=== PATIENT | male | born 1965 | race American Indian/Alaskan Native ===

== ENCOUNTER 2016-12-18 19:22 | Emergency (ER) | payer BC ==
--- NOTE | 2016-12-18 22:10 | XRay Report ---
FINAL REPORT PROCEDURE: XR FINGER(S) 2+V LT TECHNIQUE: LEFT 2nd finger radiographs, including AP, lateral, and oblique views. HISTORY: pain left index r/o fracture vs. foreign body COMPARISON: No prior studies are available for comparison. FINDINGS: Fracture (s) and/or Dislocation(s): None . Alignment: Normal. Joint space(s): Normal . Soft tissues: Normal . Bone mineralization: Normal . Foreign bodies: None . IMPRESSION: Normal Examination
[2016-12-18] MEDS ORDERED: BOOSTRIX IM ONE (22:18)
--- NOTE | 2016-12-18 22:29 | Emergency Department Report ---
ED Upper Extremity Inj HPI - General Chief Complaint: Extremity Injury, Upper Stated Complaint: SPLINTER LEFT FINGER Time Seen by Provider: 12/18/16 21:27 Source: patient Mode of arrival: Ambulatory Limitations: No Limitations - History of Present Illness Initial Comments: This is a 51-year-old male nontoxic, well nourished in appearance, no acute signs of distress presents to the ED complaining of left index finger. Patient was cutting wood and believe a piece of wood penetrated his left index finger and thinks he has a [place] in his left index finger. Patient stated this occurred today around 12:30 PM. Patient denies any numbness, tingling, pus, drainage, swelling, decreased range of motion, fever, chills, nausea, vomiting chest pain or shortness of breath. Patient denies any allergies or past medical history. Patient states he last received tetanus over 10 years ago. MD Complaint: Injury to:: left, finger -: Gradual, This afternoon Other Extremity Injury: Fingers: Left Other Injuries: none Place: work Severity scale (0 -10): 5 Improves With: none Worsens With: none Associated Symptoms: denies other symptoms. denies: weakness, numbness, neck pain, suspects foreign body, nausea/vomiting, heard/felt popping sensat - Related Data Previous Rx's Medication Instructions Recorded Last Taken Type Ibuprofen [Motrin 600 MG tab] 600 mg PO Q8H PRN #30 tablet 12/18/16 Unknown Rx Allergies Allergy/AdvReac Type Severity Reaction Status Date / Time No Known Allergies Allergy Unverified 12/18/16 20:09 ED Review of Systems ROS: Stated complaint: SPLINTER LEFT FINGER Other details as noted in HPI Constitutional: denies: chills, fever Eyes: denies: eye pain, eye discharge, vision change ENT: denies: ear pain, throat pain Respiratory: denies: cough, shortness of breath, wheezing Cardiovascular: denies: chest pain, palpitations Endocrine: no symptoms reported Gastrointestinal: denies: abdominal pain, nausea, diarrhea Genitourinary: denies: urgency, dysuria Musculoskeletal: denies: back pain, joint swelling, arthralgia Skin: denies: rash, lesions Neurological: denies: headache, weakness, paresthesias Psychiatric: denies: anxiety, depression Hematological/Lymphatic: denies: easy bleeding, easy bruising ED Past Medical Hx - Past Medical History Previous Medical History?: No - Surgical History Past Surgical History?: No - Social History Smoking Status: Never Smoker Substance Use Type: None - Medications Home Medications: Home Medications Medication Instructions Recorded Confirmed Last Taken Type Ibuprofen [Motrin 600 MG tab] 600 mg PO Q8H PRN #30 tablet 12/18/16 Unknown Rx ED Physical Exam - General Limitations: No Limitations General appearance: alert, in no apparent distress - Head Head exam: Present: atraumatic, normocephalic, normal inspection - Eye Eye exam: Present: normal appearance, PERRL, EOMI. Absent: scleral icterus, conjunctival injection, nystagmus, periorbital swelling, periorbital tenderness Pupils: Present: normal accommodation - ENT ENT exam: Present: normal exam, normal orophraynx, mucous membranes moist, TM's normal bilaterally, normal external ear exam - Neck Neck exam: Present: normal inspection, full ROM. Absent: tenderness, meningismus, lymphadenopathy, thyromegaly - Respiratory Respiratory exam: Present: normal lung sounds bilaterally. Absent: respiratory distress, wheezes, rales, rhonchi, stridor, chest wall tenderness, accessory muscle use, decreased breath sounds, prolonged expiratory - Cardiovascular Cardiovascular Exam: Present: regular rate, normal rhythm, normal heart sounds. Absent: bradycardia, tachycardia, irregular rhythm, systolic murmur, diastolic murmur, rubs, gallop - GI/Abdominal GI/Abdominal exam: Present: soft, normal bowel sounds. Absent: distended, tenderness, guarding, rebound, rigid, diminished bowel sounds - Rectal Rectal exam: Present: deferred - Extremities Exam Extremities exam: Present: normal inspection, full ROM, normal capillary refill. Absent: tenderness, pedal edema, joint swelling, calf tenderness - Expanded Upper Extremity Exam Left General: Present: normal inspection Shoulder Exam: Present: normal inspection, full ROM. Absent: tenderness, swelling, abrasion, laceration, ecchymosis, deformity, crepidus, dislocation, erythema, tenderness over AC joint Upper Arm exam: Present: normal inspection, full ROM. Absent: tenderness, swelling, abrasion, laceration, ecchymosis, deformity, crepidus, dislocation, erythema Elbow exam: Present: normal inspection, full ROM. Absent: tenderness, swelling , abrasion, laceration, ecchymosis, deformity, crepidus, dislocation, erythema, effusion, pain w/ pronation/supination, tenderness over radial head Forearm Wrist exam: Present: normal inspection, full ROM. Absent: tenderness, swelling, abrasion, laceration, ecchymosis, deformity, crepidus, dislocation, erythema, tenderness over anatomical snuff box, pain with axial thumb loading Hand Wrist exam: Present: normal inspection, full ROM. Absent: tenderness, swelling, abrasion, laceration, ecchymosis, deformity, crepidus, dislocation, erythema, amputation, nail avulsion, subungual hematoma Neuro motor exam: Present: wrist extension intact, thumb opposition intact, thumb IP flexion intact, thumb adduction intact, fingers 2-5 abduction intact Neurosensory exam: Present: 2-point discrimination, radial nerve intact, ulnar nerve intact, median nerve intact Vascular: Present: vascular compromise, normal capillary refill, radial pulse, brachial pulse, ulnar pulse - Back Exam Back exam: Present: normal inspection, full ROM. Absent: tenderness, CVA tenderness (R), CVA tenderness (L), muscle spasm, paraspinal tenderness, vertebral tenderness, rash noted - Neurological Exam Neurological exam: Present: alert, oriented X3, CN II-XII intact, normal gait, reflexes normal - Psychiatric Psychiatric exam: Present: normal affect, normal mood - Skin Skin exam: Present: warm, dry, intact, normal color. Absent: rash ED Course Vital Signs 12/18/16 20:06 Temperature 98.4 F Pulse Rate 62 Blood Pressure 137/76 O2 Sat by Pulse 99 Oximetry - Reevaluation(s) Reevaluation #1: 12/18/16 22:22 Patient is speaking in full sentences with no signs of distress noted. ED Medical Decision Making - Medical Decision Making This is a 51-year-old male that presents with pain to the left index finger. Upon examination and x-ray data has no signs or indication of foreign body. Patient notified of results of the x-ray with no further questions nor by the patient. Patient was instructed to follow-up with a primary care doctor in 3-5 days or if symptoms worsen and continue return to emergency room as soon as possible possible. Critical care attestation.: If time is entered above; I have spent that time in minutes in the direct care of this critically ill patient, excluding procedure time. ED Disposition Clinical Impression: Strain of left index finger Disposition: DC-01 TO HOME OR SELFCARE Is pt being admited?: No Does the pt Need Aspirin: No Condition: Stable Additional Instructions: follow-up with a primary care doctor in 3-5 days or if symptoms worsen and continue return to emergency room as soon as possible possible. Prescriptions: Ibuprofen [Motrin 600 MG tab] 600 mg PO Q8H PRN #30 tablet PRN Reason: Pain Referrals: DINESH JORGENSEN MD [Primary Care Provider] - 3-5 Days MARLENE LADD MD [Staff Physician] - 3-5 Days [facility] [Outside] - 3-5 Days [facility] [place] [facility] [place]] - 3-5 Days Forms: Work/School Release Form(ED)
[2016-12-18 23:39] VITALS: BP 124/95
== END 2016-12-18 22:47 | disposition home or self-care (01) ==
LOC: ED 19:22
DX: S56.112A Strain of flexor muscle, fascia and tendon of left index finger at forearm level, initial encounter (principal); W45.8XXA Other foreign body or object entering through skin, initial encounter; Y93.89 Activity, other specified; Y92.89 Other specified places as the place of occurrence of the external cause; Y99.8 Other external cause status
CPT/HCPCS: 96372; 99283

== ENCOUNTER 2017-02-19 08:14 | Emergency (ER) | payer BC ==
[2017-02-19 08:23] VITALS: BP 129/73
--- NOTE | 2017-02-19 09:14 | Emergency Department Report ---
Upper Extremity - HPI Chief Complaint: Extremity Injury, Upper Stated Complaint: L SHOULDER PAIN Time Seen by Provider: 02/19/17 09:08 Upper Extremity: Left Shoulder, Left Thumb Occurred When: >5 Days Mechanism: Other Severity: mild Symptoms: No Pain with Movement, No Deformity, No Limited Range of Movement, No Numbness, No Weakness, No Swelling, No Bruising/Ecchymosis, No Laceration or Abrasion Other History: fuller w repetitive motion. no known trauma. no cp. no sob. full rom ED Review of Systems ROS: Stated complaint: L SHOULDER PAIN Other details as noted in HPI Comment: All other systems reviewed and negative Musculoskeletal: other (r shoulder and r thumb pain) ED Past Medical Hx - Past Medical History Previous Medical History?: No - Surgical History Past Surgical History?: No - Social History Smoking Status: Never Smoker Substance Use Type: None - Medications Home Medications: Home Medications Medication Instructions Recorded Confirmed Last Taken Type Naproxen [Naprosyn] 500 mg PO BID PRN #20 tablet 02/19/17 Unknown Rx Upper Extremity Exam - Exam General: Vital signs noted. No distress. Alert and acting appropriately. Head and Torso: No HEENT Abnormality, No Neck Tenderness, No Chest/Lungs Abnormality, No Abdominal Tenderness, No Back Tenderness Shoulder Exam: Yes Normal Range of Motion in Shoulder, No Shoulder Tenderness, No Clavicle Tenderness, No Shoulder Deformity, No AC Joint Tenderness Arm Exam: No Arm/Humerus Tenderness, No Arm Deformity Elbow: Yes Normal Range of Motion in Elbow, No Elbow Tenderness, No Elbow Deformity Forearm: No Forearm Tenderness, No Forearm Deformity, No Pain with Pronation, No Pain with Supination Wrist: Yes Normal ROM in Wrist, No Wrist Tenderness, No Wrist Deformity, No Snuffbox Tenderness, No Pain with Axial Thumb Compression Hand: Yes Normal ROM in Digit(s), No Hand Tenderness, No Hand Deformity, No Digit Tenderness, No Digit(s) Deformity, No Tendon Dysfunction CMS Exam: Yes Normal Distal Pulses, Yes Normal Capillary Refill, Yes Normal Distal Sensation, No Broken Skin ED Course Vital Signs 02/19/17 08:21 Temperature 97.4 F L Pulse Rate 77 Respiratory 16 Rate Blood Pressure 129/73 O2 Sat by Pulse 98 Oximetry - Reevaluation(s) Reevaluation #1: 02/19/17 09:54 xray noted discussed w pt dc w naprosyn and ortho follow up declined med while here. ED Medical Decision Making - Radiology Data Radiology results: report reviewed, image reviewed - Medical Decision Making see note - Differential Diagnosis ro fx Critical care attestation.: If time is entered above; I have spent that time in minutes in the direct care of this critically ill patient, excluding procedure time. ED Disposition Clinical Impression: Shoulder pain, left, Thumb pain, Arthritis Disposition: TO HOME OR SELFCARE Is pt being admited?: No Does the pt Need Aspirin: No Condition: Stable Instructions: Osteoarthritis (ED) Additional Instructions: follow up ortho if persists see below name and referral Prescriptions: Naproxen [Naprosyn] 500 mg PO BID PRN #20 tablet PRN Reason: Pain Referrals: PRIMARY CAREMD [Primary Care Provider] - 3-5 Days MARLENE LADD MD [Staff Physician] - 3-5 Days Time of Disposition: 09:47
--- NOTE | 2017-02-19 09:46 | XRay Report ---
Left shoulder 2 views: Findings: Mild arthritic changes a.c. joint. Normal glenohumeral joint. Normal acromiohumeral space. No soft tissue calcification. Impression: Mild arthritic changes a.c. joint.
== END 2017-02-19 09:45 | disposition home or self-care (01) ==
LOC: ED 08:14
DX: M25.512 Pain in left shoulder (principal); M19.90 Unspecified osteoarthritis, unspecified site; M79.645 Pain in left finger(s)
CPT/HCPCS: 99283

== ENCOUNTER 2017-04-28 09:48 | Day surgery (SDC) | payer BC ==
--- NOTE | 2017-04-28 10:38 | Anesthesia Consultation ---
Anesthesia Consult and Med Hx Date of service: 04/28/17 - Airway Anesthetic Teeth Evaluation: Good ROM Head & Neck: Adequate Mental/Hyoid Distance: Adequate Mallampati Class: Class II Intubation Access Assessment: Probably Good - Pulmonary Exam CTA: Yes - Pre-Operative Health Status ASA Pre-Surgery Classification: ASA2 Proposed Anesthetic Plan: MAC
--- NOTE | 2017-04-28 10:39 | Anesthesia Day of Surgery ---
Anesthesia Day of Surgery - Day of Surgery Patient Examined: Yes Patient H&P Reviewed: Yes Patient is NPO: Yes
[2017-04-28] MEDS ORDERED: NACL 0.9% 1000 ML 1,000 ML IV SCH (11:00)
[2017-04-28] MEDS ORDERED: WATER FOR IRRIG STERILE IR ONE (11:41)
[2017-04-28] MEDS ORDERED: WATER FOR IRRIG STERILE ONE (11:41)
[2017-04-28] MEDS ORDERED: DIPRIVAN 10 MG/ML IV ONE ×2 (12:12→12:51)
--- NOTE | 2017-04-28 12:48 | Procedure Note ---
Date of procedure: 04/28/17 Pre-op diagnosis: Colon Polyp Screening Post-op diagnosis: other (Two Colon Polyps removed from the Transverse colon) Procedure: Colonoscopy and polypectomy done as cold,snare polypectomy and cold biopsy from the Transverse Colon. Anesthesia: MAC Surgeon: TONYA NUÑEZ Estimated blood loss: minimal Pathology: list Specimen disposition: to lab Condition: stable Disposition: same day (Avoid aspirin and aspirin related products for 3 to 4 days and follow up in 1 to 2 weeks ([phone]).)
--- NOTE | 2017-04-28 12:50 | History and Physical Report ---
HISTORY OF PRESENT ILLNESS: A 51-year-old -[place] gentleman in otherwise good health, all because of his age is being assessed for colon polyp screening and is to have a colonoscopy done at [facility] on 04/28/2017. SOCIAL HISTORY: Denies any history of smoking or alcohol use. No cardiac issues. Has not had his flu shots. ALLERGIES: No known allergies. PHYSICAL EXAMINATION: GENERAL: He is afebrile. VITAL SIGNS: Blood pressure 119/53, pulse is 67, height is 6 feet 3 inches, weight is 191 pounds. HEENT AND NECK: Shows no JVD. LUNGS: Clear to auscultation. CARDIOVASCULAR: Normal. ABDOMEN: Soft. Bowel sounds present. NEUROLOGIC: He is otherwise alert and oriented. ASSESSMENT: Colon polyp screening. PLAN: Is to do a colonoscopy at [facility] on 04/28/2017. JOB# [id number] KERRY/JANEL
[2017-04-28 14:05] VITALS: BP 116/72
--- NOTE | 2017-04-28 14:10 | Operative Report ---
INDICATIONS: This is a 51-year-old -[place] gentleman in otherwise good health who had a colonoscopy done as part of colon polyp screening because of his age. DESCRIPTION OF THE PROCEDURE: Procedure was done after getting after informed consent with MAC anesthesia. Initial rectal exam was unremarkable. Instrument was passed through the rectum in to the cecum, which was identified with ileocecal valve and appendiceal orifice. Visualization was fair to good. The cecum, ascending colon showed normal mucosa. In the proximal transverse colon, there was an 8 mm polyp noted that was removed by cold biopsy and little slightly distal to it, there was a 9-10 mm polyp that was removed by cold snare polypectomy and the edges trimmed for cold biopsy. The remaining part of the transverse colon, descending colon, sigmoid showed normal mucosa. There was no diverticular disease noted. The rectum showed minor internal hemorrhoids on the retroverted view. There was minimal bleeding from the biopsy sites. ASSESSMENT: 1. Colon polyp screening. 2. Two colon polyps noted in the transverse colon. Minor internal hemorrhoids. No diverticular disease noted. Minimal bleeding from the polypectomy sites. No complications associated with the procedure. The patient will be asked to avoid aspirin and aspirin-related products for the next few days and follow up in the office in about week's time. JOB# [id number] KERRY/JANEL
== END 2017-04-28 09:49 | disposition home or self-care (01) ==
LOC: GIO 09:48
DX: D12.3 Benign neoplasm of transverse colon (principal); K64.8 Other hemorrhoids; Z86.010 Personal history of colon polyps
CPT/HCPCS: 45380; 45385; 88305; J2704; J7030

== ENCOUNTER 2020-03-18 10:13 | Outpatient (CLI) | payer BC ==
--- NOTE | 2020-03-18 11:08 | XRay Report ---
XR foot BILAT 3+V INDICATION / CLINICAL INFORMATION: NEOPLASM UNSPECIFIED BEHAVIOR OF BONE/ NEUOPATHY. COMPARISON: None available. FINDINGS: No acute fracture. Normal alignment. Joint spaces are preserved. No destructive osseous lesion or s uspicious periosteal reaction. Impression: 1.No significant osseous abnormality of the bilateral feet. Signer Name: Cole Winter MD Signed: 03/18/2020 11:04 AM Workstation Name: [id number]
--- NOTE | 2020-03-18 11:12 | XRay Report ---
BILATERAL ANKLES 3 VIEWS INDICATION: NEOPLASM UNSPECIFIED BEHAVIOR OF BONE/ NEUOPATHY. COMPARISON: None. IMPRESSION: There is borderline bone mineralization. No acute osseous or soft tissue abnormality. No suspicious mass or bony lesion. No significant DJD. Signer Name: Adryan Albarado Jr, MD Signed: 03/18/2020 11:07 AM Workstation Name: [id number]
== END 2020-03-18 10:14 | disposition home or self-care (01) ==
LOC: XRAY 10:13
PROVIDERS: ATTEND Podiatrist Foot & Ankle Surgery
DX: D49.2 Neoplasm of unspecified behavior of bone, soft tissue, and skin (principal); G62.9 Polyneuropathy, unspecified

== ENCOUNTER 2021-05-29 02:31 | Emergency (ER) | payer BC ==
--- NOTE | 2021-05-29 06:02 | Emergency Department Report ---
ED General Adult HPI - General Chief complaint: Medical Clearance Stated complaint: ALLERGY Time Seen by Provider: 05/29/21 05:35 Source: patient Mode of arrival: Ambulatory Limitations: No Limitations - History of Present Illness Initial comments: 55-year-old male presents emerge department complaining of a couple day history unable nasal congestion and sinus pressure swelling to his [id number] medications. Was normal centimeters hematochezia, no fever, chills, sweats. No headaches. No change in taste, no sores no sore throat no wheezing -: Gradual Radiation: non-radiation Severity scale (0 -10): 0 Consistency: constant Improves with: none Worsens with: none Associated Symptoms: denies: diaphoresis, loss of appetite, malaise, nausea/vomiting, syncope, weakness Treatments Prior to Arrival: none - Related Data Previous Rx's Medication Instructions Recorded Last Taken Type Naproxen [Naprosyn] 500 mg PO BID PRN #20 tablet 02/19/17 Unknown Rx Tramadol HCl/Acetaminophen 1 each PO TID 15 Days #40 tablet 09/18/20 Unknown Rx [Ultracet] Levocetirizine Dihydrochloride 5 mg PO DAILY #20 05/29/21 Unknown Rx [Xyzal] Olopatadine HCl [Patanase] 30.5 gm NS DAILY #1 05/29/21 Unknown Rx hydrOXYzine HCL [Atarax] 25 mg PO Q6HR PRN #20 tablet 05/29/21 Unknown Rx Allergies Allergy/AdvReac Type Severity Reaction Status Date / Time No Known Allergies Allergy Verified 04/28/17 10:45 ED Review of Systems ROS: Stated complaint: ALLERGY Other details as noted in HPI Comment: All other systems reviewed and negative ED Past Medical Hx - Past Medical History Hx Heart Attack/AMI: Yes (remote hx NM) Hx Liver Disease: No Hx Renal Disease: No - Social History Smoking Status: Never Smoker - Medications Home Medications: Home Medications Medication Instructions Recorded Confirmed Last Taken Type Naproxen [Naprosyn] 500 mg PO BID PRN #20 tablet 02/19/17 04/28/17 Unknown Rx Tramadol HCl/Acetaminophen 1 each PO TID 15 Days #40 tablet 09/18/20 Unknown Rx [Ultracet] Levocetirizine Dihydrochloride 5 mg PO DAILY #20 05/29/21 Unknown Rx [Xyzal] Olopatadine HCl [Patanase] 30.5 gm NS DAILY #1 05/29/21 Unknown Rx hydrOXYzine HCL [Atarax] 25 mg PO Q6HR PRN #20 tablet 05/29/21 Unknown Rx ED Physical Exam - General Limitations: No Limitations General appearance: alert, in no apparent distress - Head Head exam: Present: atraumatic, normocephalic - Eye Eye exam: Present: normal appearance - ENT ENT exam: Present: mucous membranes moist, other (Nasal congestion bilaterally. No sinus tenderness to percussion. Normal transillumination. Area small effusion to the left tympanic membrane) - Neck Neck exam: Present: normal inspection - Respiratory Respiratory exam: Present: normal lung sounds bilaterally. Absent: respiratory distress - Cardiovascular Cardiovascular Exam: Present: regular rate, normal rhythm. Absent: systolic murmur, diastolic murmur, rubs, gallop - GI/Abdominal GI/Abdominal exam: Present: soft, normal bowel sounds - Rectal Rectal exam: Present: deferred - Extremities Exam Extremities exam: Present: normal inspection, normal capillary refill - Back Exam Back exam: Present: normal inspection. Absent: CVA tenderness (R), CVA tenderness (L) - Neurological Exam Neurological exam: Present: alert, oriented X3, CN II-XII intact - Psychiatric Psychiatric exam: Present: normal affect, normal mood - Skin Skin exam: Present: warm, dry, intact, normal color. Absent: rash ED Course Vital Signs 05/29/21 02:48 Temperature 98 F Pulse Rate 67 Respiratory 16 Rate Blood Pressure 138/74 [Right] O2 Sat by Pulse 97 Oximetry Critical care attestation.: If time is entered above; I have spent that time in minutes in the direct care of this critically ill patient, excluding procedure time. ED Disposition Clinical Impression: Nasal sinus congestion, Seasonal allergies Disposition: 01 HOME / SELF CARE / HOMELESS Is pt being admited?: No Does the pt Need Aspirin: No Condition: Stable Instructions: Sinus Headache, Allergic Rhinitis, Adult Prescriptions: hydrOXYzine HCL [Atarax] 25 mg PO Q6HR PRN #20 tablet PRN Reason: Itching Olopatadine HCl [Patanase] 30.5 gm NS DAILY #1 Levocetirizine Dihydrochloride [Xyzal] 5 mg PO DAILY #20 Referrals: AMY GARZA MD [Primary Care Provider] - 3-5 Days
[2021-05-29 06:11] VITALS: BP 117/89
== END 2021-05-29 06:10 | disposition home or self-care (01) ==
LOC: ED 02:31
DX: R09.89 Other specified symptoms and signs involving the circulatory and respiratory systems (principal); J30.2 Other seasonal allergic rhinitis; Z79.899 Other long term (current) drug therapy
CPT/HCPCS: 99282